=== PATIENT | female | born 1980 | race Two or more races ===

== ENCOUNTER 2017-12-24 18:01 | Emergency (ER) | payer MEDICAID ==
[~2017-12-24] VITALS: Ht 165.1 cm; Wt 86.2 kg
[2017-12-24 18:47] LABS: Basophils # (auto) 0 uL; Basophils % (auto) 0.3 % (0.0-2.0); Eosinophils # (auto) 0.1 uL; Eosinophils % (auto) 0.8 % (0.0-7.0); Hematocrit 40.1 % (36.0-46.0); Hemoglobin 13.6 g/dL (12.2-16.2); Lymphocytes # (auto) 0.6 uL; Lymphocytes % (auto) 7.5 % (10.0-50.0); Mean Corpuscular Hgb Conc. 33.8 g/dL (32.0-36.0); Mean Corpuscular Volume 82.8 fL (80.0-100.0); Neutrophils # (auto) 6.8 uL; Neutrophils % (auto) 79.4 % (37.0-80.0); Nucleated Red Blood Cells % 0.1 %; Platelet Count (auto) 307 10^3/uL (140-450); Red Blood Cells 4.85 10^6/uL (4.0-5.20); Red Cell Distribution Width 14.4 % (11.8-14.3); White Blood Cell 8.5 10^3/uL (4.4-10.8)
[2017-12-24 18:55] LABS: Urine Bacteria NONE SEEN /hpf (None Seen); Urine Blood Negative /uL (Negative); Urine Specific Gravity 1.026 (1.001-1.035); Urine WBC 1 /hpf (0 - 5)
[2017-12-24 19:01] LABS: Albumin 3.3 g/dL (3.4-5.0); BUN/Creatinine Ratio 23.6; Calcium 8.8 mg/dL (8.5-10.1); Potassium 4.4 mmol/L (3.5-5.1)
[2017-12-24 19:04] LABS: Bilirubin, Total 0.2 mg/dL (0.2-1.0); Total Protein 8.1 g/dL (6.4-8.2)
[2017-12-24] MEDS ORDERED: LORazepam 2MG/ML-1ML VIAL ONE (19:19)
[2017-12-24] MEDS ORDERED: IBUPROFEN 600 MG TAB PO ONE ×2 (19:30)
[2017-12-24] MEDS ORDERED: ACETAMINOPHEN 500 MG TAB PO ONE ×2 (19:30→19:45)
[2017-12-24] MEDS ORDERED: LORazepam 0.5 MG TAB PO ONE (19:30)
[2017-12-24 19:40] VITALS: BP 159/92
[2017-12-24] MEDS ORDERED: LORazepam 2MG/ML-1ML VIAL IM ONE (19:45)
== END 2017-12-24 19:44 | disposition home or self-care (01) ==
LOC: ER 18:01
DX: F41.0 Panic disorder [episodic paroxysmal anxiety] (principal)
CPT/HCPCS: 36415; 80053; 81001; 85025; 93005; 96372; 99285; J2060

== ENCOUNTER 2018-03-03 16:25 | Emergency (ER) | payer MEDICAID ==
[~2018-03-03] VITALS: Ht 165.1 cm; Wt 72.6 kg
[2018-03-03 16:31] VITALS: BP 142/77
== END 2018-03-03 19:46 | disposition left against medical advice (07) ==
LOC: ER 16:25
DX: J02.9 Acute pharyngitis, unspecified (principal); Z53.21 Procedure and treatment not carried out due to patient leaving prior to being seen by health care provider

== ENCOUNTER 2018-06-10 08:10 | Emergency (ER) | payer MEDICAID ==
[~2018-06-10] VITALS: Ht 165.1 cm; Wt 72.6 kg
[2018-06-10 08:15] VITALS: BP 143/74
[2018-06-10] MEDS ORDERED: KETOROLAC TROMETH 60MG/2ML VIAL IM ONE (11:30)
== END 2018-06-10 12:24 | disposition home or self-care (01) ==
LOC: ER 08:11
DX: E06.9 Thyroiditis, unspecified (principal)
CPT/HCPCS: 71046; 76536; 96372; 99284; J1885